=== PATIENT | male | born 1955 | race Caucasian/White ===

== ENCOUNTER 2017-12-25 11:28 | Emergency (ER) | payer OTHER ==
[2017-12-25 11:32] VITALS: BP 156/97; PULSE 100; TEMP 97.7; BMI 26.4
--- NOTE | 2017-12-25 12:04 | PDOC ---
History of Present Illness - General Chief Complaint: Abrasion Stated Complaint: INJURY/YPD Time Seen by Provider: 12/25/17 11:59 Exam Limitations: No Limitations - History of Present Illness Initial Comments: 12/25/17 12:04 62 yr male with c/o abrasion to the right index finger sustained by scratching it on a wall during restraining the patient. tetanus is UTD. Past History - Past Medical History Allergies/Adverse Reactions: Allergies Allergy/AdvReac Type Severity Reaction Status Date / Time No Known Allergies Allergy Verified 12/25/17 11:32 Home Medications: Ambulatory Orders Amlodipine Bes/Olmesartan Med [Laisha 5-20 mg Tablet] 1 each PO DAILY 08/24/13 HTN: Yes - Family Disease History Family Disease History: Heart Disease: Father - Suicide/Smoking/Psychosocial Hx Smoking Status: No Smoking History: Never smoked Have you smoked in the past 12 months: No Number of Cigarettes Smoked Daily: 0 Information on smoking cessation initiated: No Hx Alcohol Use: No Drug/Substance Use Hx: No Substance Use Type: None Hx Substance Use Treatment: No *Physical Exam - Vital Signs Last Vital Signs Temp Pulse Resp BP Pulse Ox 97.7 F 100 H 16 156/97 100 12/25/17 11:30 12/25/17 11:30 12/25/17 11:30 12/25/17 11:30 12/25/17 11:30 - Physical Exam General Appearance: Yes: Nourished, Appropriately Dressed HEENT: positive: EOMI, CHRISTOPH Extremity: positive: Normal Capillary Refill, Normal Inspection, Normal Range of Motion Integumentary: positive: Normal Color, Dry, Warm, Other (abrasion to the right pinky digit , from nv intact ) Neurologic: positive: Alert, Normal Mood/Affect, Normal Response, Motor Strength 5/5 Procedures - Laceration/Wound Repair Right Distal Dorsal 5th digit Wound Length: to 2.5 cm Wound Explored: clean Wound's Depth, Shape: superficial Progress: 12/25/17 12:09 cleaned with peroxide bacitracin and bandaid placed *DC/Admit/Observation/Transfer Diagnosis at time of Disposition: Finger abrasion, non-infected - Discharge Dispostion Disposition: HOME Condition at time of disposition: Good - Referrals Referrals: Dallas Churchill [Primary Care Provider] - - Patient Instructions Additional Instructions: keep clean and dry bacitracin daily until healed - Post Discharge Activity
== END 2017-12-25 13:14 | disposition home or self-care (01) ==
LOC: JERFT 11:28
DX: S60.410A Abrasion of right index finger, initial encounter (principal); X58.XXXA Exposure to other specified factors, initial encounter; Y35.891A Legal intervention involving other specified means, law enforcement official injured, initial encounter; Y93.89 Activity, other specified; Y92.89 Other specified places as the place of occurrence of the external cause; Y99.0 Civilian activity done for income or pay
CPT/HCPCS: 99281-25

== ENCOUNTER 2018-02-01 12:09 | Emergency (ER) | payer OTHER ==
[2018-02-01 12:25] VITALS: BP 143/93; PULSE 95; TEMP 97; BMI 26.7
[2018-02-01] MEDS ORDERED: IBUPROFEN 600 MG TABLET (FP) PO ONE ×2 (12:36→12:38)
--- NOTE | 2018-02-01 12:47 | PDOC ---
History of Present Illness - General Chief Complaint: Injury Stated Complaint: INJURY Time Seen by Provider: 02/01/18 12:31 History Source: Patient Exam Limitations: No Limitations - History of Present Illness Initial Comments: 02/01/18 12:42 62-year-old male presents to ED with complaints of pain to his left thumb. Patient had traumatic injury years ago requiring him to have hand surgery removing cartilage from the area. 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 Timing/Duration: 1/2 hour Severity: mild Associated Symptoms: reports: denies symptoms Past History - Travel Traveled outside of the country in the last 30 days: No Close contact w/someone who was outside of country & ill: No - Past Medical History Allergies/Adverse Reactions: Allergies Allergy/AdvReac Type Severity Reaction Status Date / Time No Known Allergies Allergy Verified 02/01/18 12:24 Home Medications: Ambulatory Orders Amlodipine Bes/Olmesartan Med [Laisha 5-20 mg Tablet] 1 each PO DAILY 08/24/13 COPD: No HTN: Yes - Family Disease History Family Disease History: Heart Disease: Father - Suicide/Smoking/Psychosocial Hx Smoking Status: No Smoking History: Never smoked Have you smoked in the past 12 months: No Number of Cigarettes Smoked Daily: 0 Hx Alcohol Use: No Drug/Substance Use Hx: No Substance Use Type: None Hx Substance Use Treatment: No Patient Lives Alone: Yes Lives with/in: lives alone Review of Systems - Review of Systems Able to Perform ROS?: Yes Constitutional: No: Symptoms Reported Musculoskeletal: Yes: Joint Pain (left thumb). No: Joint Swelling, Joint Stiffness Integumentary: Yes: Symptoms Reported Neurological: Yes: Paresthesia (left fingertip of thumb) All Other Systems: Reviewed and Negative *Physical Exam - Vital Signs Last Vital Signs Temp Pulse Resp BP Pulse Ox 97 F L 95 H 18 143/93 99 02/01/18 12:22 02/01/18 12:22 02/01/18 12:22 02/01/18 12:22 02/01/18 12:22 - Physical Exam Extremity: positive: Normal Capillary Refill. negative: Normal Range of Motion (unable to fully hyperextend left 1sst digit) Integumentary: positive: Normal Color, Warm, Moist Neurologic: positive: Motor Strength 5/5, Sensory Deficit (decreased to medial aspect of left 1st nailbed). negative: Numbness Medical Decision Making - Medical Decision Making 02/01/18 13:00 CC: left thumb pain, YPD Exam: mild paresthesia to medial aspect of left 1st fingertip Plan: Rest, ice, motrin *DC/Admit/Observation/Transfer Diagnosis at time of Disposition: Injury of thumb, left - Discharge Dispostion Disposition: HOME Condition at time of disposition: Good - Referrals - Patient Instructions Printed Discharge Instructions: DI for Finger Sprain Additional Instructions: At this time I recommend applying ice to the area x 72 hours. Rest area x 72 hours and take Motrin 600mg every 8 hrs for discomfort and inflammation - Post Discharge Activity
== END 2018-02-01 12:51 | disposition home or self-care (01) ==
LOC: JERFT 12:09
DX: S63.622A Sprain of interphalangeal joint of left thumb, initial encounter (principal); Y35.811A Legal intervention involving manhandling, law enforcement official injured, initial encounter; Y93.89 Activity, other specified; Y92.89 Other specified places as the place of occurrence of the external cause; Y99.0 Civilian activity done for income or pay
CPT/HCPCS: 99281-25